=== PATIENT | male | born 1985 | race Caucasian/White ===

== ENCOUNTER 2019-11-18 15:20 | Emergency (ER) | payer MEDICAID, SELFPAY ==
[2019-11-18 15:21] VITALS: BP 106/64; PULSE 71; RESP 16; TEMP 37.1; O2SAT 98; BMI 29.9
--- NOTE | 2019-11-18 15:30 | ED.VIS.GEN ---
History of Present Illness Chief Complaint: Male Pain/Injury Informant: Patient Onset: Days Context: Gradual Onset Timing: Continuous Current Severity: Moderate Maximum Severity: Moderate Narrative: Patient is a 34-year-old male who is otherwise healthy that presents to the emergency department with penile discharge. Patient states that he is sexually active in an open relationship. He states over the past 3 days, has had clear discharge and pain with urination. He denies any fevers or chills. He denies any weight loss or night sweats. He is otherwise been in his normal state of health. Prior similar symptoms: No Recent Illness/Hospitalization: No Past Medical History - Allergies and Home Meds Allergies/Adverse Reactions: Allergies No Known Allergies Allergy (Verified 11/18/19 15:21) Primary Care Physician: NOT,DEFINED [Primary Care Provider] - Prior records reviewed: Yes Past Medical History: None Surgical History: no surgical history Smoking Status: Current every day smoker Review of Systems General: Denies: Chills, Fever, Sweats Eyes: Denies: Visual changes - bilaterally, Diplopia ENT: Denies: Rhinorrhea, Sore throat Cardiovascular: Denies: Chest pain, Palpitations Respiratory: Denies: Dyspnea, Cough, Dyspnea on exertion Gastrointestinal: Denies: Abdominal pain, Nausea, Vomiting, Diarrhea, Melena, Hematochezia Genitourinary: Reports: Dysuria. Denies: Hematuria, Frequency Musculoskeletal: Denies: Back pain, Extremity Pain Skin: Denies: Rash, Wounds Neurological: Denies: Headache, Weakness, Numbness Physical Exam Vital Signs/Narrative: Vital Signs Temp Pulse Resp BP Pulse Ox 11/18/19 15:21 98.7 F 71 16 106/64 98 Inital Vital Signs reviewed: Yes General: Well nourished, Well developed, No Acute Distress Head: Normocephalic, Atraumatic Eyes: Perrl, EOMI ENT: Moist mucous membranes, No rhinorrhea Neck: Supple, Nontender Cardiovascular: Regular rate, Regular rhythm, No murmurs Respiratory: No distress, CTA bilaterally, Chest nontender Abdomen: Soft, Nontender, Nondistended, Normal bowel sounds Back: Nontender, Normal Inspection Extremities: Nontender, No edema Skin: Normal color, No rash Neurological: Alert, Oriented x3, Cranial nerves II-XII grossly intact, Normal Strength, Normal Sensation Psychological: Normal affect, Normal Mood Diagnostic/Tx/Re-eval - Medical Decision Making External genital exam is normal. There is no chancre lesions. There is no active discharge. Testicles are nontender. Given the patient's exposure and symptoms, I will treat him empirically with azithromycin and Rocephin. He was counseled to have his partners evaluated and treated. He will be discharged home. Impression 1. Urethritis secondary to STD ED Disposition - Plan for ED Patient: Instructions: ED STI Male Treated Referrals: NOT,DEFINED [Primary Care Provider] -
[2019-11-18] MEDS: Azithromycin 250 MG Tablet 1000 MG PO (15:48)
[2019-11-18] MEDS: Ceftriaxone 500 MG Vial 250 MG IM (16:05)
--- NOTE | 2019-11-18 16:19 | ED.RN ---
pt was on shot time, when this rn went to reassess injection site and discharge pt, pt was no longer in the room.
[2019-11-18 17:53] LABS: Chlamydia Trachomatis by PCR Negative (Negative); Neisserai gonorrhoeae by PCR Negative (Negative); Probe Check PASS; Sample Adequacy Control PASS; Specimen Processing Control PASS
== END 2019-11-18 16:19 | disposition home or self-care (01) ==
LOC: ED 15:47
PROVIDERS: Emergency Provider Emergency Medicine
DX: A64 Unspecified sexually transmitted disease (principal); N34.2 Other urethritis; F17.200 Nicotine dependence, unspecified, uncomplicated
CPT/HCPCS: 87491; 87591; 96372; 99283